=== PATIENT | male | born 1950 | race Caucasian/White ===

== ENCOUNTER 2017-12-09 09:06 | Day surgery (SDC) | payer OTHER ==
[2017-12-08 11:54] VITALS: BMI 24.0
[2017-12-09] MEDS ORDERED: PROPOFOL 20 ML ONE ×2 (09:10)
[2017-12-09] MEDS ORDERED: LIDOCAINE HCL/PF 2% SDV 5ML VIAL ONE (09:10)
[2017-12-09 10:23] VITALS: TEMP 98.5
[2017-12-09 10:52] VITALS: PULSE 59
[2017-12-09 11:32] VITALS: BP 121/72
--- NOTE | 2017-12-12 13:56 | PATH ---
Surgical Pathology Report Patient Name: CHANTE BANG [facility]. Rec. #: [id number] /Age/Gender: 1950 (Age: 67) / M Account: [id number] Location: U-ENDOSCOPY Taken: 12/09/2017 Received: 12/09/2017 Reported: 12/12/2017 Physicians: Sheryl Simpson M.D. Specimen(s) Received A: BX2ND PORTION DUODENUM B: BX GASTRIC ANTRUM C: BX GE JUNCTION D: RECTAL POLYP E: POLYP FROM DISTAL TRANSVERSE COLON F: POLYP FROM PROXIMAL TRANSVERSE COLON Clinical History Preoperative diagnosis: Esophageal reflux, personal history of colon polyps, screening neoplasm, pneumatosis cystoides inter??? Postoperative diagnosis: Antral gastritis, reflux disease, colon polyps, diverticulosis Final Diagnosis A. DUODENUM, SECOND PORTION AND BULB, BIOPSY: MILD NONSPECIFIC CHRONIC DUODENITIS. NO HISTOLOGIC EVIDENCE OF GLUTEN SENSITIVE ENTEROPATHY (CELIAC SPRUE) IDENTIFIED. B. STOMACH, ANTRUM, BIOPSY: FOCAL MILD CHRONIC GASTRITIS. IMMUNOSTAIN FOR H. PYLORI IS NEGATIVE. C. GE JUNCTION, BIOPSY: SQUAMOUS EPITHELIUM WITH PAPILLOMATOSIS AND INTRAEPITHELIAL EOSINOPHILS CONSISTENT WITH REFLUX ESOPHAGITIS NO INTESTINAL METAPLASIA IDENTIFIED (NO HOUSE'S IDENTIFIED). D. COLON, RECTUM, POLYPECTOMY: TUBULAR ADENOMA. E. COLON, DISTAL TRANSVERSE, POLYPECTOMY: TUBULAR ADENOMA. F. COLON, PROXIMAL TRANSVERSE, POLYPECTOMY: TUBULAR ADENOMA. Comment: Recommend correlation with clinical findings and follow up as clinically indicated. Electronically Signed Dayron Bearden M.D. Gross Description A. Received in formalin, labeled "biopsy second portion of duodenum and bulb" are 3 arizmendi, irregular portions of soft tissue ranging from your 0.1-0.2 cm. in greatest dimension. The specimens are submitted in toto in one cassette. B. Received in formalin, labeled "biopsy gastric antrum" are 4 arizmendi, irregular portions of soft tissue ranging from 0.1-0.2 cm. in greatest dimension. The specimens are submitted in toto in one cassette. C. Received in formalin, labeled "biopsy GE junction" are 2 arizmendi, irregular portions of soft tissue measuring 0.2 and 0.3 cm. in greatest dimension. The specimens are submitted in toto in one cassette. D. Received in formalin, labeled "rectal polyp" is a arizmendi, irregular portion of soft tissue measuring 0.3 cm. in greatest dimension. The specimen is submitted in toto in one cassette. E. Received in formalin, labeled "polyp from transverse distal" is a arizmendi, irregular portion of soft tissue measuring 0.4 cm. in greatest dimension. The specimen is submitted in toto in one cassette. F. Received in formalin, labeled "polyp proximal transverse" is a arizmendi, irregular portion of soft tissue measuring 0.4 cm. in greatest dimension. The specimen is submitted in toto in one cassette. 12/09/2017 [facility]12/09/2017
== END 2017-12-09 11:32 | disposition home or self-care (01) ==
LOC: JASU-ENDO 09:06
PROVIDERS: ATTEND Internal Medicine Gastroenterology
PROC: 0DBL8ZX Excision of Transverse Colon, Via Natural or Artificial Opening Endoscopic, Diagnostic (ICD-10-PCS; 2017-12-09)
PROC: 0DB98ZX Excision of Duodenum, Via Natural or Artificial Opening Endoscopic, Diagnostic (ICD-10-PCS; 2017-12-09)
PROC: 0DB68ZX Excision of Stomach, Via Natural or Artificial Opening Endoscopic, Diagnostic (ICD-10-PCS; 2017-12-09)
PROC: 0DB28ZX Excision of Middle Esophagus, Via Natural or Artificial Opening Endoscopic, Diagnostic (ICD-10-PCS; 2017-12-09)
PROC: 0DBP8ZX Excision of Rectum, Via Natural or Artificial Opening Endoscopic, Diagnostic (ICD-10-PCS; principal; 2017-12-09 10:00)
DX: Z12.11 Encounter for screening for malignant neoplasm of colon (principal); Z80.0 Family history of malignant neoplasm of digestive organs; Z86.010 Personal history of colon polyps; K62.1 Rectal polyp; D12.3 Benign neoplasm of transverse colon; K57.30 Diverticulosis of large intestine without perforation or abscess without bleeding; K25.9 Gastric ulcer, unspecified as acute or chronic, without hemorrhage or perforation; K44.9 Diaphragmatic hernia without obstruction or gangrene; K21.9 Gastro-esophageal reflux disease without esophagitis
CPT/HCPCS: 88305-TC; 88342-TC

== ENCOUNTER 2018-02-16 06:07 | Day surgery (SDC) | payer OTHER ==
[2018-02-13 12:25] VITALS: BMI 21.7
[2018-02-16] MEDS ORDERED: DEXAMETHASONE SOD PHOSPHATE/PF 10 MG/ML SDV ONE (06:43)
[2018-02-16] MEDS ORDERED: ROPIVACAINE HCL 0.5% 30ML VIAL ONE (06:43)
[2018-02-16] MEDS ORDERED: MIDAZOLAM HCL 2 MG/2 ML SINGLE DOSE VIAL ONE (06:43)
[2018-02-16] MEDS ORDERED: PROPOFOL 20 ML ONE ×4 (07:53)
[2018-02-16] MEDS ORDERED: DEXAMETHASONE SOD PHOSPHATE 4 MG/1 ML VIAL ONE (08:33)
[2018-02-16] MEDS ORDERED: ONDANSETRON 4 MG/2 ML VIAL ONE (08:33)
[2018-02-16] MEDS ORDERED: ceFAZolin SODIUM 1 GM VIAL ONE (08:45)
[2018-02-16] MEDS ORDERED: ONDANSETRON 4 MG/2 ML VIAL IVPUSH PRN (08:53)
[2018-02-16] MEDS ORDERED: oxyCODONE HCL 5 MG TABLET PO PRN (08:53)
[2018-02-16] MEDS ORDERED: LACTATED RINGERS SOLUTION 1,000 ML IV SCH (09:00)
[2018-02-16 10:26] VITALS: TEMP 97.4
[2018-02-16 11:52] VITALS: BP 120/65; PULSE 16
--- NOTE | 2018-02-16 13:50 | OP ---
DATE OF OPERATION: 02/16/2018 PREOPERATIVE DIAGNOSIS: Status post right elbow olecranon open reduction and internal fixation with current loose hardware and possible infection and mass. POSTOPERATIVE DIAGNOSIS: Status post right elbow olecranon open reduction and internal fixation with current loose hardware and possible infection and mass. OPERATIVE PROCEDURE: 1. Right elbow removal of prosthesis with debridement and culture. 2. Excision, mass of right elbow. SURGEON: Elicia Marr MD LASER OPERATOR: SON Narayanan ANESTHESIA: Regional. COMPLICATIONS: None. ESTIMATED BLOOD LOSS: Minimal. INDICATION FOR PROCEDURE: The patient is a 67-year-old male who is remote from a right olecranon ORIF with internal fixation. He presented with the above findings of drainage of the wound, as well as loose hardware and was indicated for operative treatment. There was also a prominent mass over the plate. Risks, benefits, and alternatives were discussed with the patient at length, and proper informed consent was obtained. PROCEDURE: After proper identification of the patient and correct operative site, patient was brought to the operating room, placed supine on the table. Prominences were well padded. Sedation and regional anesthesia were given. Right upper extremity was prepped and draped in the usual sterile fashion. Well-padded tourniquet was placed as well as a sterile prep. [place] was used to exsanguinate the upper extremity, and the tourniquet was inflated to 250 mmHg. Patient's prior incision was redeveloped. The mass was identified and appeared to be a thick bursa sac at the area of a loose screw. This was excised in whole and sent for pathologic evaluation. Superficial cultures were taken. Continued sharp dissection was performed down to the plate and screws, where a thickened yellowish tissue was found, which could have been necrotic tissue versus a low-grade infection. This area was debrided, and the plate and screws were all removed. One of the screws was particularly loose and the hole here was fairly large and this area had a sinus going to the area of opening that was previously draining. There was no further drainage, and the wound had healed. This area was also cultured. The bone in this area was debrided and cultured. Once final cultures were taken, intravenous antibiotics were given. The area was further debrided, and the bone was smoothed of any bone overgrowth. The triceps and fascia were repaired in a [id number] fashion after thorough irrigation and debridement. The skin was repaired in layers using 3-0 Vicryl and 3-0 nylon. Sterile dressings were applied. The patient was reversed from anesthesia and brought to Recovery in stable condition. Vikram Mazariegos, the syrup mixer assistant, was integral throughout the procedure. Procedure could not have been performed without a skilled operative syrup mixer assistant. ELICIA MARR M.D. [place]/[id number]
--- NOTE | 2018-02-20 17:53 | PATH ---
Surgical Pathology Report Patient Name: CHANTE BANG [facility]. Rec. #: [id number] /Age/Gender: 1950 (Age: 67) / M Account: [id number] Location: [facility] AMBULATORY Taken: 02/16/2018 Received: 02/16/2018 Reported: 02/20/2018 Physicians: Srikanth Dunham M.D. Specimen(s) Received A: RIGHT ELBOW MASS, LIKELY BURSA B: RIGHT KNEE HARDWARE Clinical History Mechanical malfunction of right elbow orthopedic hardware Final Diagnosis A. ELBOW MASS, RIGHT, BURSA, EXCISION: DENSE FIBROCONNECTIVE TISSUE WITH ACUTE AND CHRONICALLY INFLAMED CYSTIC LESION AND SURROUNDING REACTIVE CHANGES CONSISTENT WITH INFLAMED BURSA. B. HARDWARE, ELBOW, RIGHT, REMOVAL: SURGICAL HARDWARE. MACROSCOPIC DIAGNOSIS. Electronically Signed Lilia Bah M.D. Gross Description A. Received in formalin labeled "right elbow mass likely bursa," is a 2.5 x 2.0 x 1.1 cm arizmendi-yellow soft tissue mass. Sectioning reveals fibrous tissue. Cast Associate sections are submitted in one cassette. B. Received fresh labeled "right elbow hardware," is a 9.0 x 1.5 x 0.3 cm metallic plate. Also received within the same container are 8 julien metallic screws ranging from 1.3-4.6 cm in length. No soft tissue is present. No sections are submitted, gross only. 02/17/2018 [place]02/17/2018
== END 2018-02-16 11:05 | disposition home or self-care (01) ==
LOC: FASU 06:07
PROVIDERS: ATTEND Orthopaedic Surgery Hand Surgery
PROC: 0RPL04Z Removal of Internal Fixation Device from Right Elbow Joint, Open Approach (ICD-10-PCS; 2018-02-16)
PROC: 0RPL0JZ Removal of Synthetic Substitute from Right Elbow Joint, Open Approach (ICD-10-PCS; principal; 2018-02-16 08:03)
DX: T84.192A Other mechanical complication of internal fixation device of bone of right forearm, initial encounter (principal); R22.31 Localized swelling, mass and lump, right upper limb; Y83.8 Other surgical procedures as the cause of abnormal reaction of the patient, or of later complication, without mention of misadventure at the time of the procedure; Y92.9 Unspecified place or not applicable
CPT/HCPCS: 87070; 87075; 87116; 87186; 87205; 87206; 88300-TC; 88304-TC; 94760

== ENCOUNTER → 2018-02-24 | Day surgery (SDC) | payer OTHER | END | disposition home or self-care (01) | LOC: JRADIR 09:50 | PROVIDERS: ATTEND Internal Medicine | PROC: 05H633Z Insertion of Infusion Device into Left Subclavian Vein, Percutaneous Approach (ICD-10-PCS; principal; 2018-02-24) | PROC: B517ZZA Fluoroscopy of Left Subclavian Vein, Guidance (ICD-10-PCS; 2018-02-24) | DX: M86.9 Osteomyelitis, unspecified (principal) | CPT/HCPCS: 36569; 77001-TC-FY; C1751 ==

== ENCOUNTER 2021-01-30 04:48 | Day surgery (SDC) | payer OTHER, MEDICARE ==
[2021-01-28 12:56] VITALS: BMI 24.0
[2021-01-30 10:52] VITALS: TEMP 97.7
[2021-01-30 11:42] VITALS: BP 128/77; PULSE 60
== END 2021-01-30 12:00 | disposition home or self-care (01) ==
LOC: JASU-ENDO 04:48
PROVIDERS: ATTEND Internal Medicine Gastroenterology
PROC: 0DBL8ZX Excision of Transverse Colon, Via Natural or Artificial Opening Endoscopic, Diagnostic (ICD-10-PCS; 2021-01-30)
PROC: 0DB98ZX Excision of Duodenum, Via Natural or Artificial Opening Endoscopic, Diagnostic (ICD-10-PCS; 2021-01-30)
PROC: 0DB78ZX Excision of Stomach, Pylorus, Via Natural or Artificial Opening Endoscopic, Diagnostic (ICD-10-PCS; 2021-01-30)
PROC: 0DB38ZX Excision of Lower Esophagus, Via Natural or Artificial Opening Endoscopic, Diagnostic (ICD-10-PCS; 2021-01-30)
PROC: 0DBH8ZX Excision of Cecum, Via Natural or Artificial Opening Endoscopic, Diagnostic (ICD-10-PCS; principal; 2021-01-30 10:00)
DX: Z12.11 Encounter for screening for malignant neoplasm of colon (principal); D12.0 Benign neoplasm of cecum; D12.3 Benign neoplasm of transverse colon; K29.80 Duodenitis without bleeding; K21.9 Gastro-esophageal reflux disease without esophagitis; K29.70 Gastritis, unspecified, without bleeding; K57.30 Diverticulosis of large intestine without perforation or abscess without bleeding; Z86.010 Personal history of colon polyps; Z80.0 Family history of malignant neoplasm of digestive organs; R12 Heartburn; R10.13 Epigastric pain
CPT/HCPCS: 88305-TC; 88342-TC

== ENCOUNTER 2022-12-29 15:14 | Inpatient (IN) | payer OTHER, MEDICARE ==
[2022-12-29] MEDS ORDERED: VANCOMYCIN 1 GM in D5W (PRE-DOCKED) 1,000 MG/250 ML IVPB ONE (15:36)
[2022-12-29] MEDS ORDERED: CEFEPIME HCL/D5W 2 GM/50 ML BAG IVPB ONE (15:36)
[2022-12-29] MEDS ORDERED: SODIUM CHLORIDE 0.9% 1000 ML INFUS.BAG IV ONE ×2 (15:37→17:18)
[2022-12-29] MEDS ORDERED: ACETAMINOPHEN 1000 MG/100 ML BAG IVPB ONE (16:15)
[2022-12-29] MEDS ORDERED: ACETAMINOPHEN INJECTION 100 ML IVPB ONE (16:22)
[2022-12-29] MEDS ORDERED: CEFEPIME 2 GM/100 ML BAG IVPB ONE (16:23)
[2022-12-29 16:55] LABS: HEMATOCRIT 36.4 % (35.4-49); HEMOGLOBIN 11.7 GM/dL (11.7-16.9); MCH 29.4 pg (25.7-33.7); MCHC 32.1 g/dl (32.0-35.9); MEAN CELL VOLUME 91.6 fl (80-96); MEAN PLT VOLUME 8.8 fl (7.5-11.1); PLATELET COUNT 164 10^3/uL (134-434); RBC 3.98 M/mm3 (4.00-5.60); RDW 19.6 % (11.9-15.9)
[2022-12-29] MEDS ORDERED: VANCOMYCIN/WATER FOR INJ (PEG) 1,000 MG/200 ML BAG IVPB ONE (16:58)
[2022-12-29 17:00] LABS: EPI CELLS 2 /uL (0-25.1); HYALINE CASTS 1 /uL (0-3.1); URINE APPEARANCE CLEAR; URINE BACTERIA 12 /uL (0-1359); URINE BILIRUBIN NEGATIVE (NEGATIVE); URINE COLOR YELLOW; URINE GLUCOSE (UA) NEGATIVE (NEGATIVE); URINE KETONE NEGATIVE (NEGATIVE); URINE LEUK ESTERASE NEGATIVE (NEGATIVE); URINE NITRITE NEGATIVE (NEGATIVE); URINE PROTEIN 1+ (NEGATIVE); URINE RBC 55 /uL (0-23.9); URINE UROBILINOGEN 0.2 mg/dL (0.2-1.0); URINE WBC 7 /uL (0-25.8)
[2022-12-29 17:04] LABS: VENOUS BASE EXCESS -1.1 mmol/L (-2-2); VENOUS O2 SATURATION 68.4 % (70-80); VENOUS PCO2 55.4 mmHg (38-52); VENOUS PH 7.294 (7.310-7.410)
[2022-12-29 17:11] LABS: WHITE BLOOD COUNT 0.4 K/mm3 (4.0-10.0)
[2022-12-29 17:16] LABS: INR 1.06 (0.83-1.09); PROTHROMBIN TIME (PATIENT) 12.3 SEC (9.7-13.0)
[2022-12-29 17:20] LABS: CALCIUM 7.4 mg/dL (8.5-10.1)
[2022-12-29 17:21] LABS: ALBUMIN 1.7 g/dl (3.4-5.0)
[2022-12-29 17:24] LABS: CREATININE 1.1 mg/dL (0.55-1.3)
[2022-12-29 17:25] LABS: BILIRUBIN,TOTAL 0.2 mg/dL (0.2-1); TOT PROT 4.9 g/dl (6.4-8.2)
[2022-12-29 17:30] LABS: LACTIC ACID 3.9 mmol/L (0.4-2.0)
[2022-12-29 17:35] LABS: ANISOCYTOSIS 3+; MACROCYTOSIS 0; TOXIC GRANULATION 1+
[2022-12-29] MEDS: LACTATED RINGERS SOLUTION 1,000 ML/1,000 ML INFUS.BAG IV SCH (19:00)
[2022-12-29] MEDS ORDERED: ONDANSETRON 4 MG/2 ML VIAL IVPUSH PRN (19:26)
[2022-12-29 20:28] LABS: RETICULOCYTES 0.28 % (0.5-1.5)
[2022-12-29 20:47] VITALS: BMI 20.7
[2022-12-29] MEDS: MUPIROCIN 2% TOPICAL OINTMENT FOR DECOLONIZATION NS SCH (21:36)
[2022-12-29] MEDS: CHLORHEXIDINE GLUCONATE 4% CLEANSER FOR DECOLONIZATION TP SCH (21:36)
[2022-12-29] MEDS: MIRTAZAPINE 15 MG TABLET (FP) PO SCH (21:38)
[2022-12-29] MEDS ORDERED: METOCLOPRAMIDE HCL INJECTION 10 MG/2 ML VIAL IVPUSH PRN (22:19)
[2022-12-29] MEDS: ACETAMINOPHEN 1000 MG/100 ML BAG IVPB PRN (22:26)
[2022-12-30] MEDS ORDERED: CEFEPIME 2 GM in DEXTROSE 5%-WATER 100 ML IVPB SCH (04:30)
[2022-12-30] MEDS ORDERED: VANCOMYCIN 1 GM in D5W (PRE-DOCKED) 1,000 MG/250 ML IVPB SCH (04:30)
[2022-12-30] MEDS ORDERED: VANCOMYCIN 1 GM/200 ML PREMIX BAG (RESTRICTED TO ID ONLY) IVPB SCH (05:00)
[2022-12-30] MEDS: METOCLOPRAMIDE HCL INJECTION 10 MG/2 ML VIAL IVPUSH PRN ×3 (06:10→23:56)
[2022-12-30] MEDS: LEVOTHYROXINE NA 50 MCG TABLET (FP) PO SCH (06:10)
[2022-12-30 07:40] LABS: INR 1.17 (0.83-1.09); PROTHROMBIN TIME (PATIENT) 13.5 SEC (9.7-13.0)
[2022-12-30 07:42] LABS: ACTIVATED PTT 26.7 SECONDS (25.2-36.5)
[2022-12-30 07:49] LABS: HEMATOCRIT 27.4 % (35.4-49); HEMOGLOBIN 9.2 GM/dL (11.7-16.9); MCH 30.2 pg (25.7-33.7); MCHC 33.6 g/dl (32.0-35.9); MEAN CELL VOLUME 89.9 fl (80-96); MEAN PLT VOLUME 8.7 fl (7.5-11.1); PLATELET COUNT 120 10^3/uL (134-434); RBC 3.04 M/mm3 (4.00-5.60); RDW 19.1 % (11.9-15.9)
[2022-12-30 07:51] LABS: WHITE BLOOD COUNT 0.4 K/mm3 (4.0-10.0)
[2022-12-30 08:00] LABS: MAGNESIUM 1.7 mg/dL (1.8-2.4)
[2022-12-30 08:01] LABS: BLOOD UREA NITROGEN 39.4 mg/dL (7-18)
[2022-12-30 08:03] LABS: BILIRUBIN,TOTAL 0.2 mg/dL (0.2-1); PHOSPHOROUS 3.1 mg/dL (2.5-4.9)
[2022-12-30 08:04] LABS: TOT PROT 3.9 g/dl (6.4-8.2)
[2022-12-30 08:16] LABS: ALBUMIN 1.3 g/dl (3.4-5.0)
[2022-12-30] MEDS: FOLIC ACID 1 MG TABLET (FP) PO SCH (09:03)
[2022-12-30] MEDS: FAMOTIDINE 20 MG TABLET PO SCH (09:03)
[2022-12-30] MEDS: LACTATED RINGERS SOLUTION 1,000 ML/1,000 ML INFUS.BAG IV SCH (09:03)
[2022-12-30] MEDS: ENOXAPARIN NA (PORCINE) 40 MG/0.4 ML DISP.SYRIN SQ SCH (09:03)
[2022-12-30] MEDS: MUPIROCIN 2% TOPICAL OINTMENT FOR DECOLONIZATION NS SCH ×2 (09:11→21:18)
[2022-12-30] MEDS ORDERED: PIPERACILLIN/TAZOB 3.375 GM 3.375 GM in DEXTROSE 5%-WATER - 50 ML IVPB SCH (10:00)
[2022-12-30 10:29] LABS: ANISOCYTOSIS 0; HELMET CELLS 0; HOWELL-JOLLY BODIES 0; MACROCYTOSIS 0; OVALOCYTE 0; ROULEAU 0; SICKELED CELLS 0; TARGET CELLS 0; TEAR DROP CELLS 0; TOXIC GRANULATION 0
[2022-12-30 10:57] LABS: RETICULOCYTES 0.45 % (0.5-1.5)
[2022-12-30] MEDS: MEROPENEM 1 GM in DEXTROSE 5%-WATER 100 ML IVPB SCH ×2 (11:23→17:21)
[2022-12-30] MEDS ORDERED: MAGNESIUM 1GM/D5W 100ML - 100 ML IVPB IVPB ONE (13:52)
[2022-12-30] MEDS: VANCOMYCIN/WATER FOR INJ (PEG) 1,000 MG/200 ML BAG IVPB SCH (15:00)
[2022-12-30] MEDS: ACETAMINOPHEN 1000 MG/100 ML BAG IVPB PRN (17:21)
[2022-12-30] MEDS: CHLORHEXIDINE GLUCONATE 4% CLEANSER FOR DECOLONIZATION TP SCH (21:18)
[2022-12-30] MEDS: MIRTAZAPINE 15 MG TABLET (FP) PO SCH ×2 (21:18→21:22)
[2022-12-31] MEDS: MEROPENEM 1 GM in DEXTROSE 5%-WATER 100 ML IVPB SCH ×3 (01:53→17:36)
[2022-12-31] MEDS ORDERED: CEFEPIME 2 GM in DEXTROSE 5%-WATER 100 ML IVPB SCH (04:30)
[2022-12-31] MEDS: LACTATED RINGERS SOLUTION 1,000 ML/1,000 ML INFUS.BAG IV SCH (04:57)
[2022-12-31] MEDS: VANCOMYCIN/WATER FOR INJ (PEG) 1,000 MG/200 ML BAG IVPB SCH (04:57)
[2022-12-31] MEDS: LEVOTHYROXINE NA 50 MCG TABLET (FP) PO SCH (06:41)
[2022-12-31 07:12] LABS: EOS % 10.4 % (0-4.5); HEMATOCRIT 24.4 % (35.4-49); HEMOGLOBIN 8.1 GM/dL (11.7-16.9); LYMPH % 58.3 % (8-40); MCH 29.6 pg (25.7-33.7); MCHC 33.4 g/dl (32.0-35.9); MEAN CELL VOLUME 88.6 fl (80-96); MEAN PLT VOLUME 8.7 fl (7.5-11.1); MONO % 14.3 % (3.8-10.2); PLATELET COUNT 74 10^3/uL (134-434); RBC 2.75 M/mm3 (4.00-5.60); RDW 18.6 % (11.9-15.9)
[2022-12-31] MEDS: METOCLOPRAMIDE HCL INJECTION 10 MG/2 ML VIAL IVPUSH PRN ×3 (07:22→20:09)
[2022-12-31 07:25] LABS: CHLORIDE 100 mmol/L (98-107); SODIUM 130 mmol/L (136-145)
[2022-12-31 07:27] LABS: ALBUMIN 1.2 g/dl (3.4-5.0); ANION GAP 8 MMOL/L (8-16); BLOOD UREA NITROGEN 27.9 mg/dL (7-18); CO2 22 mmol/L (21-32); GLUCOSE,RANDOM 90 mg/dL (74-106); MAGNESIUM 1.7 mg/dL (1.8-2.4)
[2022-12-31 07:30] LABS: CREATININE 0.9 mg/dL (0.55-1.3); SGOT/AST 9 U/L (15-37); SGPT/ALT 13 U/L (13-61)
[2022-12-31 07:32] LABS: BILIRUBIN,TOTAL 0.1 mg/dL (0.2-1); TOT PROT 3.5 g/dl (6.4-8.2)
[2022-12-31 07:33] LABS: ALK PHOS 100 U/L (45-117)
[2022-12-31 07:40] LABS: CALCIUM 6.7 mg/dL (8.5-10.1)
[2022-12-31 07:53] LABS: WHITE BLOOD COUNT 0.3 K/mm3 (4.0-10.0)
[2022-12-31] MEDS ORDERED: MAGNESIUM SULF 50% (8.12 MEQ/2 ML-1 GM VIAL) IVPB ONE (08:07)
[2022-12-31] MEDS: ENOXAPARIN NA (PORCINE) 40 MG/0.4 ML DISP.SYRIN SQ SCH (10:11)
[2022-12-31] MEDS: FAMOTIDINE 20 MG TABLET PO SCH (10:12)
[2022-12-31] MEDS: MUPIROCIN 2% TOPICAL OINTMENT FOR DECOLONIZATION NS SCH ×2 (10:12→21:52)
[2022-12-31] MEDS: FOLIC ACID 1 MG TABLET (FP) PO SCH (10:12)
[2022-12-31] MEDS: SODIUM CHLORIDE 1,000 ML IV SCH (10:13)
[2022-12-31 10:19] LABS: ANISOCYTOSIS 0; MACROCYTOSIS 0
[2022-12-31] MEDS ORDERED: KCL 10 MEQ IVPB 10 MEQ/100 ML INFUS.BAG IVPB SCH (13:15)
[2022-12-31] MEDS: CHLORHEXIDINE GLUCONATE 4% CLEANSER FOR DECOLONIZATION TP SCH (21:52)
[2022-12-31] MEDS: MIRTAZAPINE 15 MG TABLET (FP) PO SCH (21:57)
[2022-12-31] MEDS ORDERED: LORazepam 0.5 MG TABLET PO ONE (22:19)
[2022-12-31] MEDS ORDERED: TBO-FILGRASTIM 300 MCG/0.5 ML DISP.SYRINGE SQ ONE (23:48)
[2023-01-01] MEDS: METOCLOPRAMIDE HCL INJECTION 10 MG/2 ML VIAL IVPUSH PRN ×4 (03:13→22:13)
[2023-01-01] MEDS: MEROPENEM 1 GM in DEXTROSE 5%-WATER 100 ML IVPB SCH ×2 (03:18→09:07)
[2023-01-01] MEDS ORDERED: MELATONIN 5 MG TABLETS PO ONE (04:53)
[2023-01-01] MEDS: LEVOTHYROXINE NA 50 MCG TABLET (FP) PO SCH (06:10)
[2023-01-01 07:53] LABS: CALCIUM 7.3 mg/dL (8.5-10.1)
[2023-01-01 07:54] LABS: ALBUMIN 1.2 g/dl (3.4-5.0); BLOOD UREA NITROGEN 23.8 mg/dL (7-18); MAGNESIUM 2.2 mg/dL (1.8-2.4)
[2023-01-01 07:57] LABS: CREATININE 0.9 mg/dL (0.55-1.3)
[2023-01-01 07:58] LABS: TOT PROT 3.6 g/dl (6.4-8.2)
[2023-01-01 07:59] LABS: BILIRUBIN,TOTAL 0.2 mg/dL (0.2-1)
[2023-01-01 08:01] LABS: HEMATOCRIT 26.7 % (35.4-49); HEMOGLOBIN 8.7 GM/dL (11.7-16.9); MCH 29.2 pg (25.7-33.7); MCHC 32.7 g/dl (32.0-35.9); MEAN CELL VOLUME 89.1 fl (80-96); MEAN PLT VOLUME 10.6 fl (7.5-11.1); PLATELET COUNT 54 10^3/uL (134-434)
[2023-01-01 08:16] LABS: WHITE BLOOD COUNT 0.4 K/mm3 (4.0-10.0)
[2023-01-01] MEDS: MUPIROCIN 2% TOPICAL OINTMENT FOR DECOLONIZATION NS SCH ×2 (09:07→20:59)
[2023-01-01] MEDS: ENOXAPARIN NA (PORCINE) 40 MG/0.4 ML DISP.SYRIN SQ SCH (09:07)
[2023-01-01] MEDS: FAMOTIDINE 20 MG TABLET PO SCH (09:07)
[2023-01-01] MEDS: FOLIC ACID 1 MG TABLET (FP) PO SCH (09:07)
[2023-01-01 09:47] LABS: ANISOCYTOSIS 0; CORRECTED WBC 0.36 K/mm3; MACROCYTOSIS 0
[2023-01-01] MEDS: MAG HYDROX/AL HYDROX/SIMETH 30 ML UNIT-DOSE CUP PO PRN ×2 (14:10→20:37)
[2023-01-01] MEDS: ALBUMIN HUMAN 25% 12.5 GM/50 ML VIAL IV SCH ×4 (15:41→17:41)
[2023-01-01] MEDS: TBO-FILGRASTIM 300 MCG/0.5 ML DISP.SYRINGE SQ SCH (17:18)
[2023-01-01] MEDS: PIPERACILLIN/TAZOB 4.5 GM 4.5 GM in DEXTROSE 5%-WATER 100 ML IVPB SCH (17:42)
[2023-01-01] MEDS: SODIUM CHLORIDE 1,000 ML IV SCH (17:45)
[2023-01-01] MEDS: CHLORHEXIDINE GLUCONATE 4% CLEANSER FOR DECOLONIZATION TP SCH (20:59)
[2023-01-01] MEDS: MIRTAZAPINE 15 MG TABLET (FP) PO SCH (21:00)
[2023-01-01] MEDS: MELATONIN 5 MG TABLETS PO PRN (21:01)
[2023-01-02] MEDS: PIPERACILLIN/TAZOB 4.5 GM 4.5 GM in DEXTROSE 5%-WATER 100 ML IVPB SCH ×3 (01:03→17:31)
[2023-01-02] MEDS: LEVOTHYROXINE NA 50 MCG TABLET (FP) PO SCH (06:25)
[2023-01-02 07:27] LABS: HEMATOCRIT 26.2 % (35.4-49); HEMOGLOBIN 8.9 GM/dL (11.7-16.9); MCH 30.2 pg (25.7-33.7); MEAN CELL VOLUME 88.8 fl (80-96); MEAN PLT VOLUME 10.6 fl (7.5-11.1); PLATELET COUNT 51 10^3/uL (134-434); RBC 2.95 M/mm3 (4.00-5.60); RDW 18.6 % (11.9-15.9)
[2023-01-02 07:30] LABS: WHITE BLOOD COUNT 0.8 K/mm3 (4.0-10.0)
[2023-01-02 08:58] LABS: BLOOD UREA NITROGEN 18.4 mg/dL (7-18); CALCIUM 7.1 mg/dL (8.5-10.1); MAGNESIUM 1.9 mg/dL (1.8-2.4)
[2023-01-02 09:01] LABS: PHOSPHOROUS 2.2 mg/dL (2.5-4.9)
[2023-01-02] MEDS: FAMOTIDINE 20 MG TABLET PO SCH (09:50)
[2023-01-02] MEDS: FOLIC ACID 1 MG TABLET (FP) PO SCH (09:51)
[2023-01-02] MEDS: SODIUM CHLORIDE 1,000 ML IV SCH (09:51)
[2023-01-02] MEDS: ENOXAPARIN NA (PORCINE) 40 MG/0.4 ML DISP.SYRIN SQ SCH (09:51)
[2023-01-02] MEDS: MUPIROCIN 2% TOPICAL OINTMENT FOR DECOLONIZATION NS SCH ×2 (09:52→21:24)
[2023-01-02] MEDS: METOCLOPRAMIDE HCL INJECTION 10 MG/2 ML VIAL IVPUSH PRN ×2 (12:30→17:31)
[2023-01-02] MEDS: TBO-FILGRASTIM 300 MCG/0.5 ML DISP.SYRINGE SQ SCH (17:32)
[2023-01-02] MEDS: MIRTAZAPINE 15 MG TABLET (FP) PO SCH (21:23)
[2023-01-02] MEDS: MELATONIN 5 MG TABLETS PO PRN (21:26)
[2023-01-02] MEDS: CHLORHEXIDINE GLUCONATE 4% CLEANSER FOR DECOLONIZATION TP SCH (21:26)
[2023-01-03] MEDS: PIPERACILLIN/TAZOB 4.5 GM 4.5 GM in DEXTROSE 5%-WATER 100 ML IVPB SCH ×3 (02:17→17:11)
[2023-01-03] MEDS: LEVOTHYROXINE NA 50 MCG TABLET (FP) PO SCH (06:00)
[2023-01-03] MEDS: SODIUM CHLORIDE 1,000 ML IV SCH (07:24)
[2023-01-03] MEDS: METOCLOPRAMIDE HCL INJECTION 10 MG/2 ML VIAL IVPUSH PRN ×3 (07:25→22:46)
[2023-01-03 07:42] LABS: BASO % 0.4 % (0-2.0); EOS % 0.6 % (0-4.5); HEMATOCRIT 26.6 % (35.4-49); HEMOGLOBIN 8.8 GM/dL (11.7-16.9); LYMPH % 4.5 % (8-40); MCH 29.4 pg (25.7-33.7); MCHC 33.2 g/dl (32.0-35.9); MEAN CELL VOLUME 88.5 fl (80-96); MEAN PLT VOLUME 9.9 fl (7.5-11.1); MONO % 11.6 % (3.8-10.2); NEUT % 82.9 % (42.8-82.8); PLATELET COUNT 65 10^3/uL (134-434); RBC 3.01 M/mm3 (4.00-5.60); RDW 18.6 % (11.9-15.9)
[2023-01-03 07:56] LABS: CHLORIDE 105 mmol/L (98-107); SODIUM 134 mmol/L (136-145)
[2023-01-03 08:00] LABS: ANION GAP 6 MMOL/L (8-16); BLOOD UREA NITROGEN 17.4 mg/dL (7-18); CO2 23 mmol/L (21-32); GLUCOSE,RANDOM 89 mg/dL (74-106); MAGNESIUM 1.7 mg/dL (1.8-2.4)
[2023-01-03 08:03] LABS: PHOSPHOROUS 1.4 mg/dL (2.5-4.9)
[2023-01-03 08:21] LABS: CALCIUM 6.8 mg/dL (8.5-10.1)
[2023-01-03 09:02] LABS: ANISOCYTOSIS 0; HELMET CELLS 0; HOWELL-JOLLY BODIES 0; MACROCYTOSIS 0; OVALOCYTE 0; ROULEAU 0; SICKELED CELLS 0; TARGET CELLS 0; TEAR DROP CELLS 0; TOXIC GRANULATION 0
[2023-01-03] MEDS: FAMOTIDINE 20 MG TABLET PO SCH (09:48)
[2023-01-03] MEDS: ENOXAPARIN NA (PORCINE) 40 MG/0.4 ML DISP.SYRIN SQ SCH (09:48)
[2023-01-03] MEDS: FOLIC ACID 1 MG TABLET (FP) PO SCH (09:48)
[2023-01-03] MEDS: MUPIROCIN 2% TOPICAL OINTMENT FOR DECOLONIZATION NS SCH (09:48)
[2023-01-03] MEDS ORDERED: POTASSIUM PHOSPHATE 30 MM in SODIUM CHLORIDE 250 ML IVPB ONE (13:37)
[2023-01-03] MEDS: MAGNESIUM SULF 50% (8.12 MEQ/2 ML-1 GM VIAL) IVPB SCH ×2 (15:11→20:30)
[2023-01-03] MEDS ORDERED: MIDODRINE HCL 5 MG TABLET PO SCH (18:00)
[2023-01-03] MEDS: TBO-FILGRASTIM 300 MCG/0.5 ML DISP.SYRINGE SQ SCH (18:16)
[2023-01-03] MEDS: MIRTAZAPINE 15 MG TABLET (FP) PO SCH (22:50)
[2023-01-03] MEDS: CHLORHEXIDINE GLUCONATE 4% CLEANSER FOR DECOLONIZATION TP SCH (22:51)
[2023-01-04] MEDS: PIPERACILLIN/TAZOB 4.5 GM 4.5 GM in DEXTROSE 5%-WATER 100 ML IVPB SCH ×4 (02:59→17:46)
[2023-01-04] MEDS ORDERED: MAGNESIUM SULF 50% (8.12 MEQ/2 ML-1 GM VIAL) IVPB SCH (03:15)
[2023-01-04] MEDS: LEVOTHYROXINE NA 50 MCG TABLET (FP) PO SCH (06:49)
[2023-01-04] MEDS: METOCLOPRAMIDE HCL INJECTION 10 MG/2 ML VIAL IVPUSH PRN ×2 (06:51→12:06)
[2023-01-04 08:01] LABS: HEMATOCRIT 26.4 % (35.4-49); HEMOGLOBIN 8.6 GM/dL (11.7-16.9); MCHC 32.6 g/dl (32.0-35.9); MEAN CELL VOLUME 89.1 fl (80-96); MEAN PLT VOLUME 10.2 fl (7.5-11.1); PLATELET COUNT 114 10^3/uL (134-434); RBC 2.96 M/mm3 (4.00-5.60); RDW 18.9 % (11.9-15.9); WHITE BLOOD COUNT 11.4 K/mm3 (4.0-10.0)
[2023-01-04 08:32] LABS: ALBUMIN 1.4 g/dl (3.4-5.0); CALCIUM 7.1 mg/dL (8.5-10.1)
[2023-01-04 08:33] LABS: BLOOD UREA NITROGEN 15.8 mg/dL (7-18); MAGNESIUM 2.4 mg/dL (1.8-2.4)
[2023-01-04 08:35] LABS: PHOSPHOROUS 2.6 mg/dL (2.5-4.9)
[2023-01-04 08:37] LABS: BILIRUBIN,TOTAL 0.4 mg/dL (0.2-1); TOT PROT 3.5 g/dl (6.4-8.2)
[2023-01-04 09:03] LABS: ANISOCYTOSIS 0; HELMET CELLS 0; HOWELL-JOLLY BODIES 0; MACROCYTOSIS 0; OVALOCYTE 0; ROULEAU 0; SICKELED CELLS 0; TARGET CELLS 0; TEAR DROP CELLS 0; TOXIC GRANULATION 0
[2023-01-04] MEDS ORDERED: POTASSIUM CHLORIDE ORAL LIQUID 20 MEQ/15 ML PO ONE (09:20)
[2023-01-04] MEDS ORDERED: MAG HYDROX/AL HYDROX/SIMETH 30 ML UNIT-DOSE CUP PO PRN (09:32)
[2023-01-04] MEDS ORDERED: MELATONIN 5 MG TABLETS PO PRN (09:32)
[2023-01-04] MEDS: MIDODRINE HCL 5 MG TABLET PO SCH ×3 (09:48→17:46)
[2023-01-04] MEDS: ENOXAPARIN NA (PORCINE) 40 MG/0.4 ML DISP.SYRIN SQ SCH ×2 (09:49→09:58)
[2023-01-04] MEDS: FOLIC ACID 1 MG TABLET (FP) PO SCH ×2 (09:49→09:58)
[2023-01-04] MEDS: FAMOTIDINE 20 MG TABLET PO SCH ×2 (09:50→09:58)
[2023-01-04] MEDS ORDERED: MIRTAZAPINE 15 MG TABLET (FP) PO SCH (22:00)
[2023-01-05 00:07] VITALS: RESP 18
[2023-01-05] MEDS: PIPERACILLIN/TAZOB 4.5 GM 4.5 GM in DEXTROSE 5%-WATER 100 ML IVPB SCH ×2 (01:11→11:14)
[2023-01-05] MEDS: METOCLOPRAMIDE HCL INJECTION 10 MG/2 ML VIAL IVPUSH PRN ×2 (03:09→11:04)
[2023-01-05] MEDS ORDERED: LEVOTHYROXINE NA 50 MCG TABLET (FP) PO SCH (07:00)
[2023-01-05 07:32] LABS: HEMATOCRIT 26.7 % (35.4-49); HEMOGLOBIN 8.9 GM/dL (11.7-16.9); MCHC 33.5 g/dl (32.0-35.9); MEAN CELL VOLUME 89.6 fl (80-96); MEAN PLT VOLUME 10.4 fl (7.5-11.1); PLATELET COUNT 194 10^3/uL (134-434); RBC 2.98 M/mm3 (4.00-5.60); RDW 19.1 % (11.9-15.9); WHITE BLOOD COUNT 14.8 K/mm3 (4.0-10.0)
[2023-01-05 07:49] LABS: CHLORIDE 106 mmol/L (98-107); SODIUM 137 mmol/L (136-145)
[2023-01-05 07:52] LABS: ALBUMIN 1.4 g/dl (3.4-5.0); ANION GAP 8 MMOL/L (8-16); BLOOD UREA NITROGEN 16.8 mg/dL (7-18); CO2 23 mmol/L (21-32); GLUCOSE,RANDOM 80 mg/dL (74-106); MAGNESIUM 2.1 mg/dL (1.8-2.4)
[2023-01-05 07:54] LABS: SGPT/ALT 10 U/L (13-61)
[2023-01-05 07:55] LABS: CREATININE 1.1 mg/dL (0.55-1.3); PHOSPHOROUS 2.4 mg/dL (2.5-4.9); SGOT/AST 7 U/L (15-37)
[2023-01-05 07:56] LABS: BILIRUBIN,TOTAL 0.2 mg/dL (0.2-1); TOT PROT 3.6 g/dl (6.4-8.2)
[2023-01-05 07:57] LABS: ALK PHOS 114 U/L (45-117)
[2023-01-05 07:58] LABS: CALCIUM 6.8 mg/dL (8.5-10.1)
[2023-01-05 09:15] LABS: ANISOCYTOSIS 2+; MACROCYTOSIS 0; TARGET CELLS 2+; TEAR DROP CELLS 2+
[2023-01-05] MEDS: ENOXAPARIN NA (PORCINE) 40 MG/0.4 ML DISP.SYRIN SQ SCH (09:42)
[2023-01-05] MEDS: FAMOTIDINE 20 MG TABLET PO SCH (09:43)
[2023-01-05] MEDS: MIDODRINE HCL 5 MG TABLET PO SCH ×2 (09:43→13:58)
[2023-01-05] MEDS: FOLIC ACID 1 MG TABLET (FP) PO SCH (09:43)
[2023-01-05 10:14] VITALS: TEMP 98.7
[2023-01-05 13:54] VITALS: BP 94/55; PULSE 96
== END 2023-01-05 14:18 | disposition home or self-care (01) | DRG 872 ==
LOC: JER 15:14 → JERBED 18:06 → JICU 19:11 → J4S 01-03 20:43
PROVIDERS: ADMIT Internal Medicine Pulmonary Disease; ATTEND Internal Medicine
DX: A41.89 Other specified sepsis (principal); D61.818 Other pancytopenia; E87.20 Acidosis, unspecified; E87.1 Hypo-osmolality and hyponatremia; C49.4 Malignant neoplasm of connective and soft tissue of abdomen; R18.8 Other ascites; C78.02 Secondary malignant neoplasm of left lung; I10 Essential (primary) hypertension; E03.9 Hypothyroidism, unspecified; D70.8 Other neutropenia; R50.81 Fever presenting with conditions classified elsewhere; D70.1 Agranulocytosis secondary to cancer chemotherapy; T45.1X5A Adverse effect of antineoplastic and immunosuppressive drugs, initial encounter; R00.0 Tachycardia, unspecified; J45.909 Unspecified asthma, uncomplicated; B96.1 Klebsiella pneumoniae [K. pneumoniae] as the cause of diseases classified elsewhere; I95.89 Other hypotension
CPT/HCPCS: 0241U-QW; 36415; 71045-TC-FY; 71250-TC; 74176-TC; 80048; 80053; 81003; 82024; 82533; 82550; 82553; 82803; 83605; 83615; 83735; 84100; 84443; 84484; 85025; 85027; 85045; 85384; 85610; 85730; 86850; 86900; 86901; 87040; 87070; 87075; 87081; 87086; 87186; 87205; 93005; 93010; 93306-TC; 97116-GP; 97163-GP; 99285-25; G0480; J1447; P9047